=== PATIENT | female | born 1970 | race American Indian/Alaskan Native ===

== ENCOUNTER 2019-05-22 15:06 | Emergency (ER) | payer OTHER ==
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
[2019-05-22 16:24] VITALS: BP 141/94
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
[2019-05-22] MEDS ORDERED: oxyCODONE /ACETAMINOPHEN 5-325MG TAB PO ONE (20:05)
[2019-05-22] MEDS ORDERED: ONDANSETRON 4 MG ODT TAB PO ONE (20:05)
[2019-05-22] MEDS ORDERED: IBUPROFEN 600 MG TAB PO ONE (20:05)
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
== END 2019-05-22 20:44 | disposition home or self-care (01) ==
LOC: ED 15:06
DX: S20.219A Contusion of unspecified front wall of thorax, initial encounter (principal); M62.830 Muscle spasm of back; M62.838 Other muscle spasm; M25.512 Pain in left shoulder; I10 Essential (primary) hypertension; Z79.899 Other long term (current) drug therapy; V49.49XA Driver injured in collision with other motor vehicles in traffic accident, initial encounter; Y93.89 Activity, other specified; Y92.410 Unspecified street and highway as the place of occurrence of the external cause; Y99.8 Other external cause status
CPT/HCPCS: 71046; 72070; 72100; Q0162